=== PATIENT | female | born 1930 | race Caucasian/White ===

== ENCOUNTER 2017-01-23 10:12 | Observation (INO) | payer MEDICARE, BC ==
--- NOTE | ~2017-01-23 | HP ---
History And Physical [id number] [facility] [place]. [address] NAME: FRANKLIN HARVEY : 30 STATUS : ADM IN PAT#: [id number] AGE: 86 ADM/REG DATE : 01/23/17 MR#: [id number] REPORT SERV DATE: 01/24/17 DICTATED BY: FREDDIE SONI DATE: 01/23/17 REPORT STATUS : Draft TRANSCRIBED BY: MODL DATE: 01/23/17 DATE OF ADMISSION: 01/23/2017 PRINCIPAL DIAGNOSIS: Bilateral lower extremity weakness. HISTORY OF PRESENT ILLNESS: Ms. Harvey is an 86-year-old female with history of hypertension, whose course began about a month ago when she was found to have a chronic cough, diagnosed with bronchitis, given a Z-Juan. Things got no better, however, the cough persists. Since then, she has noticed progressive weakness particularly over the last couple of weeks where she has been falling every day. Her family noticed when she tries to squat or bend over, she is unable to get up and then that often precipitates a fall. She has had no syncope, but has noticed some confusion. There has been some question about blurred vision. Over the last six months, she has noticed tremors. She says she has been unable to control the fall and has bruised her shoulders. She denies any other injuries. She denies any gastrointestinal or urinary complaints. No weight loss. Appetite has been okay. She denies any cardiovascular or pulmonary complaints. Denies any swelling of her legs. She does acknowledge ongoing mild shortness of breath associated with her cough, inability to take deep breath. REVIEW OF SYSTEMS: Remainder of review of systems are negative. PAST MEDICAL HISTORY: As mentioned above. History of B12 deficiency, for which she has recently been under treatment. 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 MEDICATIONS: Include perphenazine, Elavil, aspirin, B12, thyroxine, Hyzaar, Prilosec, potassium, and trazodone. ALLERGIES: NO DRUG ALLERGIES. FAMILY HISTORY: Significant that her offsprings are healthy. SOCIAL HISTORY: The patient has no tobacco, alcohol, or drugs. PHYSICAL EXAMINATION: VITAL SIGNS: On presentation,blood pressure 130/61, pulse 93, respirations 18, afebrile, saturating 100%. GENERAL: Awake, alert, and oriented x3, in no apparent distress. HEENT: Pupils are equal and reactive to light. Extraocular movements are intact. No cranial nerve deficits. Moist mucous membranes. Normal oropharynx. NECK: Revealed no jugular venous distention, carotid bruits, lymphadenopathy, or goiter. CARDIAC: Regular rate and rhythm. No murmurs, gallops, or rubs. LUNGS: Clear to auscultation bilaterally. Good excursion. ABDOMEN: Soft, nontender. Bowel sounds normal and active. EXTREMITIES: No cyanosis, clubbing, or edema. Good pulses and capillary refill. History And Physical [address] [place]. [address] NAME: FRANKLIN HARVEY : 30 STATUS : ADM IN PAT#: [id number] AGE: 86 ADM/REG DATE : 01/23/17 MR#: [id number] REPORT SERV DATE: 01/24/17 DICTATED BY: FREDDIE SONI DATE: 01/23/17 REPORT STATUS : Draft TRANSCRIBED BY: MATIAS DATE: 01/23/17 NEUROLOGIC: She had no cranial nerve deficits. Normal visual dale. She had normal finger to-nose testing. No pronator drift. She had normal reflexes in her arms, 5 out of 5 strength and normal sensory. Motor function was 4 out of 5 in bilateral lower extremities both proximally and distally. She had normal sensory function in her feet; however, she had hyperreflexia with 3 to 4+ reflexes, bilateral patellar reflexes, and positive Babinski bilaterally, but typically prominent on the right foot. SKIN: Warm and dry. PSYCHIATRIC: She is appropriate. LABORATORY EVALUATION: Sodium 137, potassium 3.8, chloride 99, bicarb 28, BUN 13, creatinine 1.0, glucose 76. White count 8000, H and H 12/37, platelets 308. Chest x-ray was negative. CT of the brain showed frontal lobe atrophy. EKG, normal sinus rhythm. No ST or T-wave changes. ASSESSMENT AND PLAN: 1. Bilateral lower extremity weakness with hyperreflexia concerning for spinal stenosis more likely lumbar than cervical, but a CT will be done of both. MRI cannot be done due to her wired jaw. Differential diagnosis does include B12 deficiency-related disease; however, this is more likely dorsal column than ventral. Central nervous system disease would imply bilaterality, but could possibly include watershed ischemia. A CT brain with contrast may be considered if her spinal evaluation is negative and neurological consultation is necessary. 2. Hypertension. Continue present management. RSM/MODL Freddie Soni M.D. / [id number] CC: Ana Laura Portillo M.D.
--- NOTE | ~2017-01-23 | DS ---
Discharge Summary [facility] [address] [place]. [address] NAME: FRANKLIN KEBEDE : 30 STATUS : DIS Romulo PAT#: [id number] AGE: 86 ADM/REG DATE : 01/23/17 MR#: [id number] REPORT SERV DATE: 01/26/17 DICTATED BY: FREDDIE SONI DATE: 01/25/17 REPORT STATUS : Draft TRANSCRIBED BY: MODL DATE: 01/25/17 ADMISSION DATE: 01/23/2017 DISCHARGE DATE: 01/25/2017 PRINCIPAL DIAGNOSES: Bilateral lower extremity weakness due to moderate lumbar spine stenosis, chronic white matter ischemia, and advanced age with muscular weakness. SECONDARY DIAGNOSES: Hypertension, hyperreflexia, and orthostatic hypotension. HISTORY OF PRESENT ILLNESS: Please see my dictation on 01/23/2017. HOSPITAL COURSE: The patient admitted with lower extremity weakness, found to be hyperreflexic with bilateral Babinski sign. Concern for spinal stenosis of the cervical spine was satisfactory, but she had moderate spinal stenosis in her lumbar spine but not anything requiring surgery. She underwent physical therapy. She did pretty well but still had issues with gait and station, and inpatient physical therapy was recommended, and she was able to be transferred to [facility] on 01/25/2017. Diet as tolerated. Physical therapy and occupational therapy per facility. Follow up Dr. Shay Miramontes following rehab discharge. Continuing perphenazine/amitriptyline, Lipitor, Cozaar but without hydrochlorothiazide due to orthostasis. She is recommended to wear JERALD hose on q.a.m., off at bedtime. Daily aspirin, Lipitor, Synthroid, trazodone at bedtime. MELINA/MATIAS Freddie Soni M.D. / [id number] CC: Ana Laura Ibrahim M.D.
[~2017-01-23 10:12] MED LIST: DIOVAN; NEXIUM; SYNTHROID
[2017-01-23 10:52] LABS: BASOPHILS 0.5 %; BASOPHILS ABSOLUTE 0.04 10/3/uL (0.0-0.16); EOSINOPHILS 6.5 %; EOSINOPHILS ABSOLUTE 0.55 10/3/uL (0.0-0.53); HEMATOCRIT 37.1 % (36.0-48.0); HEMOGLOBIN 12.1 g/dL (12.0-16.0); IMMATURE GRANULOCYTES 0.2 %; IMMATURE GRANULOCYTES ABSOLUTE 0.02 10/3/uL (0.0-0.11); LYMPHOCYTES 18.4 %; LYMPHOCYTES ABSOLUTE 1.55 10/3/uL (0.67-4.30); MEAN CORPUSCULAR HEMOGLOB 30.3 pg (26.0-34.0); MONOCYTES 7.4 %; MONOCYTES ABSOLUTE 0.62 10/3/uL (0.21-1.20); NEUTROPHILS ABSOLUTE 5.65 10/3/uL (2.02-8.40); RBC DISTRIBUTION WIDTH 13.8 % (12.0-16.0); RED CELL COUNT 3.99 10/6/uL (4.0-5.6)
[2017-01-23 10:53] LABS: ER CBC TAT 0 Hrs 07 Mins; MANUAL DIFF NO %; MEAN CORPUS HGB CONC 32.6 g/dL (32.0-36.0); PLATELET COUNT 318 10/3/uL (150-400); WHITE BLOOD CELLS 8.4 10/3/uL (4.5-10.5)
[2017-01-23 11:02] LABS: PARTIAL THROMBO TIME 25.9 SEC (22.5-37.2); PROTIME (NOT ORD) 13.4 SEC (12.0-14.5)
[2017-01-23 11:06] LABS: ASCORBIC ACID (UR NOT ORDER) NEG (NEG); BILIRUBIN, URINE NEGATIVE (NEG); ER URINALYSIS TAT 0 Hrs 09 Mins; KETONE, URINE NEGATIVE (NEG); LEUKOCYTE ESTERASE(NOT OR NEG (NEG); NITRITE (URINE) NEG (NEG); WBC (NOT ORDERED) (RFLEX) 1 (0-5)
[2017-01-23 11:09] LABS: ALBUMIN 3.2 G/DL (3.5-5.0); BUN (BLOOD UREA NITROGEN) 13 MG/DL (6-23); CALCIUM, SERUM 9.1 MG/DL (8.5-10.4); CHLORIDE, SERUM 99 MMOL/L (96-112); CO2 (CARBON DIOXIDE) 28 MMOL/L (24-34); CREATININE 1.03 MG/DL (0.55-1.02); GFR AFRICAN AMERICAN 57 ML/MIN (>=60); GFR NON AFRICAN AMERICAN 49 ML/MIN (>=60); POTASSIUM, SERUM 3.8 MMOL/L (3.5-5.3); SGOT(AST) 12 U/L (5-40); SGPT(ALT) 12 U/L (5-65); SODIUM, SERUM 137 MMOL/L (135-148); TOTAL BILIRUBIN 0.7 MG/DL (0-1.2); TOTAL PROTEIN 7.9 G/DL (6.0-8.5); TROPONIN I <0.02 NG/ML (<0.05)
[2017-01-23 11:10] LABS: A/G RATIO 0.7 (0.7-1.9); ALKALINE PHOSPHATASE 117 U/L (45-117); GLOBULIN 4.7 G/DL (2.5-4.1); GLUCOSE, SERUM 76 MG/DL (60-99)
[2017-01-23] MEDS ORDERED: PRILOSEC40 MG PO (15:07)
[2017-01-23] MEDS ORDERED: SYN075 PO (15:08)
[2017-01-23] MEDS ORDERED: TRAZ50 PO (15:08)
[2017-01-23] MEDS ORDERED: CYANO1000T PO (15:08)
[2017-01-23] MEDS ORDERED: ASAB PO (15:08)
[2017-01-23] MEDS ORDERED: KLOR-CON M2020 MEQ PO (15:09)
[2017-01-23] MEDS ORDERED: PERPHEN PO (15:10)
[2017-01-23] MEDS ORDERED: AMIT PO (15:10)
[2017-01-23] MEDS ORDERED: HYZAAR 100/25 T1 TAB PO (15:11)
== END 2017-01-25 14:34 ==
LOC: ER 10:12 → 4SO 15:24
PROVIDERS: Emergency Medicine
DX: R53.1 Weakness (principal); M48.06 Spinal stenosis, lumbar region; I95.1 Orthostatic hypotension; M81.0 Age-related osteoporosis without current pathological fracture; I10 Essential (primary) hypertension; Z79.82 Long term (current) use of aspirin; Z79.899 Other long term (current) drug therapy; Z90.710 Acquired absence of both cervix and uterus
CPT/HCPCS: 70450; 71010; 72125; 72131; 80053; 81001; 82607; 83880; 84443; 84484; 85025; 85610; 85730; 93005; 96372; 97162-GP; 99285; A9270-GY; G0378; G8978-CJ-GP; G8979-CI-GP